=== PATIENT | female | born 1995 | race Caucasian/White ===

== ENCOUNTER → 2024-01-08 16:15 | Outpatient (REF) | payer BC, SELFPAY ==
[2024-01-08 17:23] LABS: Beta HCG Quantitative < 2.39 mIU/ml
== END ==
LOC: CLAB 16:15
PROVIDERS: ATTENDING PHYSICIAN Physician Assistant
DX: N91.2 Amenorrhea, unspecified (principal)
CPT/HCPCS: 84702

== ENCOUNTER → 2024-02-17 12:53 | Outpatient (REF) | payer BC, SELFPAY ==
[2024-02-17 14:03] LABS: % Basophils 0.6 % (0-2); % Eosinophils 2.9 % (0-6); % Immature Granulocytes 0.3 % (0-0.5); % Lymphocytes 23.4 % (20.5-51.1); % Monocytes 6.2 % (1.7-9.3); % Neutrophils 66.6 % (42.2-75.2); Absolute Eosinophils 0.2 10^3/uL (0-0.7); Absolute Lymphocytes 1.4 10^3/uL (1.2-3.4); Absolute Monocytes 0.4 10^3/uL (0.1-0.6); Absolute Neutrophils 4.1 10^3/uL (1.4-6.5); Hematocrit 42.8 % (37.0-47.0); Mean Corp Hgb Conc. 32.7 g/dL (33.0-37.0); Mean Corpuscular Hgb 30.3 pg (27.0-31.0); Mean Corpuscular Volume 92.6 fL (81.0-99.0); Mean Platelet Volume 10.5 fL (7.4-10.4); Nucleated Red Blood Cells % 0 %; Platelet Count 256 10^3/uL (130-400); Red Blood Cell Count 4.62 10^6/uL (4.20-5.40); Red Cell Dist. Width 13.1 % (11.5-14.5); White Blood Cell Count 6.2 10^3/uL (4.8-10.8)
[2024-02-17 14:24] LABS: ALT (SGPT) 33 U/L (0-35); AST (SGOT) 25 U/L (14-36); Albumin 3.9 g/dl (3.5-5.0); Alkaline Phosphatase 71 U/L (38-126); Blood Urea Nitrogen 11 mg/dl (7-17); Calcium 9.2 mg/dl (8.4-10.2); Carbon Dioxide 25 mmol/L (22-30); Chloride 107 mmol/L (98-107); Glucose 103 mg/dl (70-99); HDL Cholesterol 35 mg/dl; LDL Cholesterol, Calculated 111 mg/dl; Potassium 4.7 mmol/L (3.5-5.1); Sodium 139 mmol/L (135-145); Total Bilirubin 0.4 mg/dl (0.2-1.3); Total Cholesterol 172 mg/dl (50-199); Total Protein 6.6 g/dl (6.3-8.2); Triglyceride 130 mg/dl (10-149); Very Low Density Lipoprotein 26 mg/dl (0-30); eGFR > 60.00
[2024-02-18 08:53] LABS: Glycohemoglobin (HgbA1c) 5.7 % (4.0-5.6)
== END ==
LOC: CLAB 12:53
PROVIDERS: ATTENDING PHYSICIAN Physician Assistant
DX: I10 Essential (primary) hypertension (principal); K21.9 Gastro-esophageal reflux disease without esophagitis; F41.9 Anxiety disorder, unspecified; B36.0 Pityriasis versicolor; F43.10 Post-traumatic stress disorder, unspecified; R73.09 Other abnormal glucose; E78.00 Pure hypercholesterolemia, unspecified
CPT/HCPCS: 80053; 80061; 83036; 85025

== ENCOUNTER → 2024-03-17 06:36 | Outpatient (REF) | payer BC, SELFPAY | LOC: PAVMRI 06:36 | PROVIDERS: ATTENDING PHYSICIAN Physician Assistant | DX: M25.571 Pain in right ankle and joints of right foot (principal); S93.491A Sprain of other ligament of right ankle, initial encounter | CPT/HCPCS: 73721 ==

== ENCOUNTER → 2024-05-28 15:01 | Outpatient (REF) | payer BC, SELFPAY | LOC: CPAP 15:01 | PROVIDERS: ATTENDING PHYSICIAN Nurse Practitioner Adult Health | DX: Z01.419 Encounter for gynecological examination (general) (routine) without abnormal findings (principal) | CPT/HCPCS: 87624; G0123 ==

== ENCOUNTER → 2024-06-25 14:53 | Outpatient (REF) | payer BC, SELFPAY | LOC: CLAB 14:53 | PROVIDERS: ATTENDING PHYSICIAN Obstetrics & Gynecology Gynecology | DX: N87.9 Dysplasia of cervix uteri, unspecified (principal) | CPT/HCPCS: 88305 ==

== ENCOUNTER 2024-08-17 17:27 | Outpatient (RCR) | payer BC, SELFPAY | END 2024-08-17 23:59 | disposition home or self-care (01) | LOC: RPT 17:27 | PROVIDERS: ATTENDING PHYSICIAN Student in an Organized Health Care Education/Training Program; FAMILY PHYSICIAN Family Medicine | DX: S93.491D Sprain of other ligament of right ankle, subsequent encounter (principal); Z73.6 Limitation of activities due to disability; M62.81 Muscle weakness (generalized); R26.2 Difficulty in walking, not elsewhere classified | CPT/HCPCS: 97110; 97140; 97161 ==

== ENCOUNTER 2024-09-21 18:03 | Outpatient (RCR) | payer BC, SELFPAY | END 2024-09-21 23:59 | disposition home or self-care (01) | LOC: RPT 18:03 | PROVIDERS: ATTENDING PHYSICIAN Student in an Organized Health Care Education/Training Program; FAMILY PHYSICIAN Family Medicine | DX: S93.491D Sprain of other ligament of right ankle, subsequent encounter (principal); S93.491S Sprain of other ligament of right ankle, sequela (principal); Z73.6 Limitation of activities due to disability; M62.81 Muscle weakness (generalized); R26.2 Difficulty in walking, not elsewhere classified | CPT/HCPCS: 97110; 97112; 97140 ==

== ENCOUNTER → 2024-09-23 10:32 | Outpatient (REF) | payer BC, SELFPAY ==
[2024-09-23 11:09] LABS: % Basophils 0.5 % (0-2); % Eosinophils 4.2 % (0-6); % Immature Granulocytes 0.2 % (0-0.5); % Monocytes 6.8 % (1.7-9.3); % Neutrophils 63.3 % (42.2-75.2); Absolute Eosinophils 0.2 10^3/uL (0-0.7); Absolute Lymphocytes 1.4 10^3/uL (1.2-3.4); Absolute Monocytes 0.4 10^3/uL (0.1-0.6); Absolute Neutrophils 3.5 10^3/uL (1.4-6.5); Hematocrit 43.5 % (37.0-47.0); Mean Corp Hgb Conc. 32.2 g/dL (33.0-37.0); Mean Corpuscular Hgb 29.9 pg (27.0-31.0); Mean Corpuscular Volume 92.9 fL (81.0-99.0); Mean Platelet Volume 10.1 fL (7.4-10.4); Nucleated Red Blood Cells % 0 %; Platelet Count 231 10^3/uL (130-400); Red Blood Cell Count 4.68 10^6/uL (4.20-5.40); Red Cell Dist. Width 12.9 % (11.5-14.5); White Blood Cell Count 5.5 10^3/uL (4.8-10.8)
[2024-09-23 11:52] LABS: Glycohemoglobin (HgbA1c) 5.4 % (4.0-5.6)
[2024-09-23 12:23] LABS: Vitamin D, 25-OH*** 27.3 ng/mL (30-80)
[2024-09-23 13:03] LABS: Folate 6.1 ng/ml (2.76-20); Vitamin B12 376 pg/ml (239-931)
[2024-09-23 15:25] LABS: ALT (SGPT) 38 U/L (0-35); AST (SGOT) 33 U/L (14-36); Albumin 4.3 g/dl (3.5-5.0); Alkaline Phosphatase 61 U/L (38-126); Blood Urea Nitrogen 12 mg/dl (7-17); Calcium 9.1 mg/dl (8.4-10.2); Carbon Dioxide 26 mmol/L (22-30); Chloride 102 mmol/L (98-107); Glucose 99 mg/dl (70-99); HDL Cholesterol 40 mg/dl; LDL Cholesterol, Calculated 108 mg/dl; Potassium 4.9 mmol/L (3.5-5.1); Sodium 139 mmol/L (135-145); Total Bilirubin 0.3 mg/dl (0.2-1.3); Total Cholesterol 171 mg/dl (50-199); Total Protein 6.9 g/dl (6.3-8.2); Triglyceride 115 mg/dl (10-149); Very Low Density Lipoprotein 23 mg/dl (0-30); eGFR > 60.00
== END ==
LOC: REG 10:32
PROVIDERS: ATTENDING PHYSICIAN Physician Assistant Medical
DX: Z00.00 Encounter for general adult medical examination without abnormal findings (principal); I10 Essential (primary) hypertension; K21.9 Gastro-esophageal reflux disease without esophagitis; F41.9 Anxiety disorder, unspecified
CPT/HCPCS: 36415; 80053; 80061; 82306; 82607; 82746; 83036; 84443; 85025

== ENCOUNTER → 2024-11-11 16:33 | Outpatient (REF) | payer BC, SELFPAY | LOC: CLAB 16:33 | PROVIDERS: ATTENDING PHYSICIAN Physician Assistant Medical | DX: Z78.9 Other specified health status (principal) | CPT/HCPCS: 36415; 86765 ==

== ENCOUNTER → 2024-11-23 11:23 | Outpatient (REF) | payer BC, SELFPAY | LOC: CPAP 11:23 | PROVIDERS: ATTENDING PHYSICIAN Obstetrics & Gynecology | DX: Z11.3 Encounter for screening for infections with a predominantly sexual mode of transmission (principal) | CPT/HCPCS: 81513; 87481; 87491; 87591; 87661 ==

== ENCOUNTER → 2024-11-29 09:54 | Outpatient (REF) | payer BC, SELFPAY | LOC: RAD 09:54 | PROVIDERS: ATTENDING PHYSICIAN Obstetrics & Gynecology | DX: O26.859 Spotting complicating pregnancy, unspecified trimester (principal); Z32.01 Encounter for pregnancy test, result positive | CPT/HCPCS: 36415; 76830; 76856; 84144; 84702 ==

== ENCOUNTER 2024-12-01 18:33 | Emergency (ER) | payer BC, SELFPAY ==
[2024-12-01 18:34] VITALS: BP 167/97
[2024-12-01 20:30] VITALS: BP 177/114
[2024-12-01 21:15] VITALS: BMI 58.6
[2024-12-01 21:33] LABS: % Basophils 0.6 % (0-2); % Eosinophils 2.1 % (0-6); % Immature Granulocytes 0.3 % (0-0.5); % Lymphocytes 23.8 % (20.5-51.1); % Monocytes 5.9 % (1.7-9.3); % Neutrophils 67.3 % (42.2-75.2); Absolute Basophils 0.1 10^3/uL (0-0.2); Absolute Eosinophils 0.2 10^3/uL (0-0.7); Absolute Lymphocytes 2.1 10^3/uL (1.2-3.4); Absolute Monocytes 0.5 10^3/uL (0.1-0.6); Absolute Neutrophils 5.9 10^3/uL (1.4-6.5); Hematocrit 38.5 % (37.0-47.0); Hemoglobin 13.4 g/dL (12.0-16.0); Mean Corp Hgb Conc. 34.8 g/dL (33.0-37.0); Mean Corpuscular Hgb 30.7 pg (27.0-31.0); Mean Corpuscular Volume 88.1 fL (81.0-99.0); Nucleated Red Blood Cells % 0 %; Platelet Count 233 10^3/uL (130-400); Red Blood Cell Count 4.37 10^6/uL (4.20-5.40); White Blood Cell Count 8.8 10^3/uL (4.8-10.8)
[2024-12-01 21:46] LABS: ALT (SGPT) 30 U/L (0-35); AST (SGOT) 23 U/L (14-36); Albumin 4.5 g/dl (3.5-5.0); Alkaline Phosphatase 55 U/L (38-126); Blood Urea Nitrogen 14 mg/dl (7-17); Calcium 9.8 mg/dl (8.4-10.2); Carbon Dioxide 27 mmol/L (22-30); Chloride 104 mmol/L (98-107); Estimated Creatinine Clearance > 125 ml/min; Glucose 116 mg/dl (70-99); Potassium 4.2 mmol/L (3.5-5.1); Sodium 140 mmol/L (135-145); Total Bilirubin 0.4 mg/dl (0.2-1.3); Total Protein 6.9 g/dl (6.3-8.2); eGFR > 60.00
--- NOTE | 2024-12-02 00:15 | ED.GENMED ---
History of Present Illness
General
Chief Complaint: Problems
Source: patient and family
Time Seen by Provider: 12/01/24 20:44
History of Present Illness
History of Present Illness:
This is a 29-year-old female who presents after she was told by her OB to come in for a 'IM injection '. The patient initially states that she suspected it was Cytotec but on further questioning realized it was methotrexate. Patient states that on
Friday she had some bleeding. She had an ultrasound that showed nothing in the uterus on Friday and her hCG was above 7000. There was concerns her hCG was repeated and it was still in the 6000's. The patient denies abdominal pain. No
lightheadedness. No passing out episode. Her bleeding has mostly subsided but she still has a little bit of brown discharge. Mom states that they were concerned that she could have an ectopic
Past History
Past History
ED Past Medical History: GERD, HTN and Other (Obesity)
ED Past Surgical History: Tonsilectomy
Social History
Tobacco: Non-smoker
Alcohol: None
Drug: None
Personal: Single
Living: with family
Phy Exam
Physical Exam
Physical Exam:
CONSTITUTIONAL Vital signs reviewed, Patient alert and oriented to person, place and time. Well-appearing
HEAD atraumatic, normocephalic.
EYES eyelids normal to inspection, Extraocular muscles intact, Conjunctiva normal, Sclera normal.
NECK normal range of motion, Trachea midline, no jugular venous distention.
RESP no respiratory distress
BACK No obvious deformities
UPPER EXTREMITY Gross Range of motion normal, gross motor strength normal
LOWER EXTREMITY Gross range of motion normal, Gross motor strength normal
NEURO Speech normal, No focal motor deficits include, [place] coma scale 15, Memory normal, Cranial Nerves intact to screening exam.
SKIN Skin warm, dry, and normal in color.
PSYCHIATRIC Patient oriented to person place and time, Normal affect.
Course
Orders/Labs/Results
Orders:
Orders
12/01/24 21:23
Blood Group&Type Urgent
Beta HCG Quantitative Urgent
Comment: ADD ON
Complete Blood Count/With Diff Urgent
Comprehensive Metabolic Panel Urgent
12/01/24 22:00
Add On- LAB Urgent
Tests Added?: hcg beta quant
12/01/24 23:36
Methotrexate Sodium/Pf [Methotrexate] 50 mg Syringe [Syringe Non-Pump] 0 ml IM ONCE@2336,2337
12/02/24 00:14
Miscellaneous Order As Directed
Miscellaneous order: Methotrexate is okay to be given intramuscularly by a non-chemo certified nurse
Abnormal Lab Results
12/01/24
21:23
Glucose 116 H mg/dl
(70-99)
12/01/24 21:23
12/01/24 21:23
Vital Signs
Initial and Last Documented VS:
Initial Vital Signs
Temp Pulse Resp BP Pulse Ox
98.3 F 96 16 167/97 98
12/01/24 18:34 12/01/24 18:34 12/01/24 18:34 12/01/24 18:34 12/01/24 18:34
Last Documented Vital Signs
Temp Pulse Resp BP Pulse Ox
98.1 F 101 20 178/100 96
12/02/24 00:27 12/02/24 00:27 12/02/24 00:27 12/02/24 00:27 12/02/24 00:27
Information
Weeks gestation: N/A
Location: N/A
MDM/Problems Addressed
Differential Diagnosis Includes:
Miscarriage, ectopic
MDM/Problems Addressed:
Ectopic
*Pulse Oximetry
Patient hypoxic: no
*Critical Care Note
Total Time (30-74mins, 75-104mins- exclusive of procedures): Not Applicable
Data Reviewed
Review of Other/Old Records Reveals: Labs (hCG levels reviewed) and Radiology Studies (Ultrasound from 324 reviewed revealing no gestational sac and no IUP)
Source: patient and family
Further Testing Considered But Not Given:
Consider repeat ultrasound but no symptoms
Patient Management
Discussion with other providers: Director [employer] (Case discussed with Dr. Pimentel)
Escalation/DeEscalation of care consider admission/obs:
29-year-old female who presents with mom. Sent by OB as beta-hCG has not declined enough. Methotrexate recommended by Dr. Pimentel. Given in the emergency department. Dr. Pimentel recommends 4-day hCG measurement. Prescription given
ED Attending Note
-
Portions of this chart may have been created with voice recognition software.� Occasional wrong word or��sound alike� substitutions may have occurred due to the inherent limitations of voice recognition software.
Discharge Plan
Departure
Patient Disposition: Home (Routine Discharge)
Date of Disposition: 12/02/24
Time of Disposition: 00:21
Patient with high blood pressure during this ER visit?: Yes
Discharge Problem:
possible ectopic
Instructions: Ectopic
Prescriptions:
No Action
cetirizine [Zyrtec] 10 mg Tablet
10 mg PO DAILY
fexofenadine 180 mg Tablet
180 mg PO DAILY
lorazepam 0.5 mg tablet
0.5 mg PO DAILYPRN PRN (Reason: anxiety/panic attack)
doxycycline monohydrate 100 mg Capsule
100 mg PO BID
lisinopril 10 mg tablet
10 mg PO DAILY
norethindrone (contraceptive) 0.35 mg tablet
0.35 mg PO DAILY
escitalopram oxalate 5 mg tablet
5 mg PO DAILY
omeprazole 20 mg Tablet,Delayed Release (Dr/Ec)
20 mg PO DAILY
Probiotic 10 billion cell Capsule
10,000 mmu cells PO DAILY
cephalexin 500 mg capsule
1,000 mg PO QID 7 Days Qty: 56 0RF
Referrals:
Ramila Villa PA-C [Family Provider] -
Stand Alone Forms: Return to Work
Activity Restrictions/Additional Instructions:
Possible ectopic
Please have your hCG drawn again in 4 days (Friday). Return immediately for excessive bleeding, excessive cramping, lightheadedness, weakness, swelling of any kind, difficulty breathing, rash or any other concerns. Please be sure to follow-up with
your OB over the next 2 to 3 days for follow-up and reassessment
Interventions
Interventions:
*Risk Screen - Suicide Last Done: 12/01/24 20:34
*General Assessment Last Done: 12/01/24 20:33
*ED- Fall Risk Assessment Last Done: 12/01/24 20:33
*ED COVID-19 Vaccine History Last Done: 12/01/24 20:32
*Nursing Disposition Last Done: 12/02/24 00:34
ED-Female Genitourinary Assessment Last Done: 12/01/24 20:34
Discharge Date and Time
Discharge Date/Time: 12/02/24 00:35
Print Language: DIVEHI
[2024-12-02] MEDS: METHOTREXATE 2 MG IM ×2 (00:16→00:19)
[2024-12-02 00:27] VITALS: BP 178/100
== END 2024-12-02 00:35 | disposition home or self-care (01) ==
LOC: EMR 18:33
PROVIDERS: EMERGENCY PHYSICIAN Emergency Medicine; FAMILY PHYSICIAN Physician Assistant Medical
DX: O03.9 Complete or unspecified spontaneous abortion without complication (principal); O02.81 Inappropriate change in quantitative human chorionic gonadotropin (hCG) in early pregnancy; I10 Essential (primary) hypertension
CPT/HCPCS: 99284; 96372; 80053; 84144; 84702; 85025; 86900; 86901; J9260

== ENCOUNTER 2024-12-09 14:02 | Emergency (ER) | payer BC, SELFPAY ==
[2024-12-09 14:04] VITALS: BP 173/104
[2024-12-09 14:22] LABS: % Basophils 0.4 % (0-2); % Eosinophils 2.5 % (0-6); % Immature Granulocytes 0.4 % (0-0.5); % Lymphocytes 19.3 % (20.5-51.1); % Monocytes 4.9 % (1.7-9.3); % Neutrophils 72.5 % (42.2-75.2); Absolute Eosinophils 0.2 10^3/uL (0-0.7); Absolute Lymphocytes 1.6 10^3/uL (1.2-3.4); Absolute Monocytes 0.4 10^3/uL (0.1-0.6); Absolute Neutrophils 6.1 10^3/uL (1.4-6.5); Hemoglobin 13.4 g/dL (12.0-16.0); Mean Corp Hgb Conc. 34.4 g/dL (33.0-37.0); Mean Corpuscular Hgb 30.7 pg (27.0-31.0); Mean Corpuscular Volume 89.2 fL (81.0-99.0); Mean Platelet Volume 9.6 fL (7.4-10.4); Nucleated Red Blood Cells % 0 %; Platelet Count 261 10^3/uL (130-400); Red Blood Cell Count 4.37 10^6/uL (4.20-5.40); Red Cell Dist. Width 12.9 % (11.5-14.5); White Blood Cell Count 8.4 10^3/uL (4.8-10.8)
[2024-12-09 14:37] VITALS: BMI 57.0
--- NOTE | 2024-12-09 14:37 | ED.GENMED ---
History of Present Illness
General
Chief Complaint: Abdominal Pain
Source: patient
Time Seen by Provider: 12/09/24 14:21
History of Present Illness
History of Present Illness:
Contact 29-year-old female with past medical history of hypertension, GERD, anxiety, recently diagnosed with suspected ectopic and treated with methotrexate on December 02 presenting to the emergency for reevaluation of pain to the right
lower quadrant that became acutely worse earlier today, notes that her hCG has down trended from a little over 7000 to 2100 today. There are no other associated symptoms with the pain presently although patient does note she had a little bit of
nausea and vomiting this morning which is now resolved. Patient denies any further vaginal bleeding or discharge. Denies any urinary symptoms or bowel changes. Patient last had an ultrasound here 6 days ago which was inconclusive for any intra or
extrauterine . She has followed up with the MECHANICAL DRAFTER for her hCGs as directed but no further imaging has been done since.
Past History
Past History
ED Past Medical History: GERD, HTN, Psychiatric and Other (Obesity)
ED Past Surgical History: Tonsilectomy
Social History
Tobacco: Non-smoker
Alcohol: None
Drug: None
Personal: Single
Living: with family
Review of Systems
Review of Systems
All Other Systems: ROS reviewed and negative except as documented in HPI and ROS
Phy Exam
Physical Exam
Physical Exam:
GENERAL: Alert , appears mildly uncomfortable, overweight
EYE: clear conjunctiva b/l
HEAD: NCAT
ENT: o/p clr, mmm.
CARDIAC: Regular rate and rhythm .
LUNGS: Clear breath sounds bilaterally, no acute respiratory distress, no wheezes/rales/rhonchi
ABDOMEN: Soft, right mid to lower abdominal tenderness with grimacing on palpation, no r/g, no cvat
NEUROLOGICAL: Alert and oriented
SKIN: Warm and dry, skin intact.
MUSCULOSKELETAL: well perfused.
PSYCH: Normal and appropriate interaction.
Scores
Heart Failure Risk
Heart Failure Risk Score: Not Applicable
Heart Score for Chest Pain Patients
STEMI patient?: Not applicable
Withdrawal Assessment of Alcohol
Withdrawal Assessment Completed?: Not applicable
Course
Orders/Labs/Results
Orders:
Orders
12/09/24 14:11
Complete Blood Count/With Diff Urgent
Comprehensive Metabolic Panel Urgent
Lipase Urgent
12/09/24 14:27
Add On- LAB Urgent
Tests Added?: hcg quantitative
12/09/24 14:36
CT Abd/pelvis W Iv Cont Urgent
Comment:
Reason For Exam: RLQ abd pain, recent suspected ectopic preg
Ketorolac [Toradol] 30 mg IV NOW STA
Abnormal Lab Results
12/09/24
14:11
Lymphocytes % 19.3 L %
(20.5-51.1)
Glucose 105 H mg/dl
(70-99)
12/09/24 14:11
12/09/24 14:11
Vital Signs
Initial and Last Documented VS:
Initial Vital Signs
Temp Pulse Resp BP Pulse Ox
98.8 F 106 18 173/104 98
12/09/24 14:04 12/09/24 14:04 12/09/24 14:04 12/09/24 14:04 12/09/24 14:04
Last Documented Vital Signs
Temp Pulse Resp BP Pulse Ox
98.8 F 106 18 173/104 99
12/09/24 14:04 12/09/24 14:04 12/09/24 14:04 12/09/24 14:04 12/09/24 14:49
MDM/Problems Addressed
Differential Diagnosis Includes:
Ectopic/ruptured ectopic , appendicitis, renal/ureteral colic, cholecystitis, medication side effect, muscle strain
MDM/Problems Addressed:
29-year-old female, diagnosed with recent suspected ectopic and receiving methotrexate 6 days ago presenting back to the emergency department due to pain within the right side of her lower abdomen that started today. Patient has had 2
hCGs drawn since the with the first being somewhere in the 3000's and today being right around 2100. Patient is tender within the right lower part of her abdomen on exam. Given her recent diagnosis of possible ectopic there is some
concern for ruptured ectopic. Patient is hypertensive and mildly tachycardic on arrival however her hemoglobin is stable at 13. Given there was no intrauterine or extrauterine seen on ultrasound will obtain CT scan to further evaluate
cause of pain. Will treat patient's pain with Toradol. Patient advised to remain NPO. Will discuss with MECHANICAL DRAFTER pending workup results.
*Radiology
Radiology exam reviewed: radiology read reviewed
*Pulse Oximetry
Patient hypoxic: no
*Critical Care Note
Total Time (30-74mins, 75-104mins- exclusive of procedures): Not Applicable
Data Reviewed
Review of Other/Old Records Reveals: Labs, Records and Radiology Studies
Patient Management
Discussion with other providers: Prenatal Nurse
Escalation/DeEscalation of care consider admission/obs:
Patient CT findings noted for suspected ectopic . There does not appear to be any retroperitoneal blood, patient has remained hemodynamically stable although she does note she still has discomfort within the right lower quadrant. I
discussed the case with on-call ADULT NEUROLOGIST, Dr. Ulloa, who came to the emergency department to evaluate the patient. States okay for discharge home and continued outpatient management. Patient will follow-up as directed for continued hCG trending.
ED Attending Note
-
Portions of this chart may have been created with voice recognition software.� Occasional wrong word or��sound alike� substitutions may have occurred due to the inherent limitations of voice recognition software.
Discharge Plan
Departure
Patient Disposition: Home (Routine Discharge)
Date of Disposition: 12/09/24
Time of Disposition: 16:59
Patient with high blood pressure during this ER visit?: Yes
Discharge Problem:
Ectopic
Instructions: Ectopic - Discharge instructions
Prescriptions:
No Action
cetirizine [Zyrtec] 10 mg Tablet
10 mg PO DAILY
fexofenadine 180 mg Tablet
180 mg PO DAILY
lorazepam 0.5 mg tablet
0.5 mg PO DAILYPRN PRN (Reason: anxiety/panic attack)
doxycycline monohydrate 100 mg Capsule
100 mg PO BID
lisinopril 10 mg tablet
10 mg PO DAILY
norethindrone (contraceptive) 0.35 mg tablet
0.35 mg PO DAILY
escitalopram oxalate 5 mg tablet
5 mg PO DAILY
omeprazole 20 mg Tablet,Delayed Release (Dr/Ec)
20 mg PO DAILY
Probiotic 10 billion cell Capsule
10,000 mmu cells PO DAILY
cephalexin 500 mg capsule
1,000 mg PO QID 7 Days Qty: 56 0RF
Referrals:
Ramlia Villa PA-C [Family Provider] -
Interventions
Interventions:
*Risk Screen - Suicide Last Done: 12/09/24 14:04
*General Assessment Last Done: 12/09/24 14:04
*Neglect/Abuse Screening Last Done: 12/09/24 14:04
*ED- Fall Risk Assessment Last Done: 12/09/24 14:35
*ED COVID-19 Vaccine History Last Done: 12/09/24 14:04
*Nursing Disposition Last Done: 12/09/24 17:16
CY-Qmujmg-Ayqhgrdlry Assessment Last Done: 12/09/24 14:35
Discharge Date and Time
Discharge Date/Time: 12/09/24 17:17
Print Language: CITIZEN OF [place]
[2024-12-09 14:39] LABS: ALT (SGPT) 30 U/L (0-35); AST (SGOT) 22 U/L (14-36); Albumin 4.1 g/dl (3.5-5.0); Alkaline Phosphatase 60 U/L (38-126); Blood Urea Nitrogen 10 mg/dl (7-17); Calcium 9.5 mg/dl (8.4-10.2); Carbon Dioxide 28 mmol/L (22-30); Chloride 104 mmol/L (98-107); Estimated Creatinine Clearance > 125 ml/min; Glucose 105 mg/dl (70-99); Lipase 103 U/L (23-300); Potassium 4.3 mmol/L (3.5-5.1); Sodium 140 mmol/L (135-145); Total Bilirubin 0.4 mg/dl (0.2-1.3); Total Protein 6.9 g/dl (6.3-8.2); eGFR > 60.00
[2024-12-09] MEDS: TORADOL 30 MG IV (14:45)
--- NOTE | 2024-12-09 17:02 | CON.MD ---
Consultation - Medical
-
Consult: ectopic
HPI: Patient is a 29yo who presents with complaints of right lower quadrant pain. Patient has known ectopic and received Methotrexate on December 01. She said she was having right sided pain at that time and it has been stable since
then. 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 She got Toradol in the ED and says she has had improvement of the pain. She says the pain is worse when
urinating and passing gas. She said it feels like period cramps and she thought it was gas pain. Hcg on day 4 was 3592 and today (day 7) is 2017. She denies dizziness, lightheadedness, chest pain, shortness of breath, or heavy vaginal bleeding.
ROS negative unless otherwise noted in the HPI
PMHx: cHTN, BMI 60
Meds: lisinopril (stopped w/ ), sebastián, buproprion, escitalopram, probiotic, zyrtec
Surghx: tonsillectomy
All: PCN, sulfa, tegratol, erythromycin, codeine
Socialhx: denies current tobacco, etoh or illicit drug use
Famhx: dad w/ DM, HTN and thyroid disease, mom w/ thyroid disease and HTN
OBHx:
Gynhx: regular monthly periods prior to getting , Pap in 06/2024 was abnormal and had a normal colpo, denies history of STDs
O:
BP 173/104
General: well appearing, no acute distress
Cardio: regular
Pulm: no increased work of breathing
Abd: mild tenderness to palpation of the RLQ with no rebound, rigidity or guarding
Ext: nontender
CTAP:
EXAMINATION: CT of the abdomen and pelvis with oral and IV contrast.
INDICATION: Right lower quadrant pain. Recent suspected ectopic .
TECHNIQUE: Contiguous helical acquisition from the bases of the lungs through the pubic symphysis with oral and IV contrast. Automated dose reduction technique was utilized. Delayed imaging was performed. Axial reconstructions and sagittal and
coronal reformats provided.
COMPARISON: Pelvic ultrasound 11/29/2024, CT the abdomen and pelvis 06/02/2023
FINDINGS:
Lung Bases: The lungs bases are clear.
Bone: Osseous structures of the abdomen and pelvis show mild degenerative disease.
Abdomen and pelvis: The liver, spleen, gallbladder and pancreas are unremarkable aside from mild hepatic fatty infiltration. The adrenal glands and kidneys are unremarkable. The abdominal aorta is normal caliber. No significant lymphadenopathy is
noted. Bowel loops are normal caliber. The terminal ileum and appendix are within normal limits. There is moderate fecal material throughout the colon. There is mild diverticulosis.
No free fluid is noted. The urinary bladder is unremarkable.
There is a hypodense irregular mass with mild rim enhancement in the right anterior pelvis seen best on image 76 series 201. It measures 2.0 x 2.6 x 3.4 cm. This is adjacent to/within the right ovary. If the patient is , ectopic
cannot be excluded. No pole nor yolk sac is identified. No intrauterine cystic mass no abnormality is noted. The left ovary is unremarkable.
IMPRESSION: Right pelvic mass as described above. An ectopic could have this appearance. A corpus luteum cyst is another possibility. Clinical and laboratory correlation recommended
Moderate fecal material in the colon.
Hepatic fatty infiltration.
A/P: Patient is a 29yo with known ectopic s/p methotrexate who presents with worsening abdominal pain
- CTAP shows right ectopic with no free fluid
- Hcg from day 4 to day 7 decreased greater than 15% (3591->2016)
- Patient had improvement of her pain of Toradol. She does have mild RLQ pain on exam but has no rebound/rigidity/guarding
- Discussed with patient at this time, I do not think she has a ruptured ectopic . Her vital signs and hemoglobin are stable, there is no free fluid on CT scan, and her hcgs are appropriately decreasing. She is resting comfortably and only
has mild tenderness on exam. Her pain is likely related to methotrexate administration and involution of the . I did discuss option for diagnostic lap with right salpingectomy to completely rule out rupture of ectopic but patient
would like to avoid surgery if possible. She was given very strict ED return precautions including worsening of her abdominal pain, heavy vaginal bleeding, dizziness, lightheadedness, chest pain, or shortness of breath. She is aware she needs to
trend hcgs weekly until they are negative. She already has an order for her hcg for next week. She is to avoid strenuous activity, intercourse, and folic acid until ectopic has resolved. She knows she should not try to conceive for 3
months after administration of methotrexate
- Patient has questions regarding her future fertility and pregnancies. Discussed increased risk of ectopic in future but also aware she can go on to have normal pregnancies. I recommend that she lose weight prior to as
an increased BMI (her is 60) increases risks of complications in future pregnancies. She was on lisinopril prior to and I recommended she speak with her PCP about changing to labetalol or Procardia which are safe to take during .
Her BP was very elevated today which the patient attributes to anxiety. I encouraged her to follow up for BP management
40 minutes spent with patient, reviewing the chart, and documenting
== END 2024-12-09 17:17 | disposition home or self-care (01) ==
LOC: EMR 14:02
PROVIDERS: EMERGENCY PHYSICIAN Student in an Organized Health Care Education/Training Program; FAMILY PHYSICIAN Physician Assistant Medical; OTHER PHYSICIAN Student in an Organized Health Care Education/Training Program
DX: O00.101 Right tubal pregnancy without intrauterine pregnancy (principal); O16.1 Unspecified maternal hypertension, first trimester; Z88.5 Allergy status to narcotic agent; Z88.2 Allergy status to sulfonamides; K76.0 Fatty (change of) liver, not elsewhere classified; O99.340 Other mental disorders complicating pregnancy, unspecified trimester; F41.9 Anxiety disorder, unspecified; Z3A.00 Weeks of gestation of pregnancy not specified
CPT/HCPCS: 96374; 99284; 74177; 80053; 83690; 84702; 85025; Q9967

== ENCOUNTER 2024-12-10 12:06 | Day surgery (SDC) | payer BC, SELFPAY ==
[2024-12-10] VITALS (26 sets, daily range): BP systolic 82–176; BP diastolic 55–112; BMI 58.0
--- NOTE | 2024-12-10 09:10 | ED.GENMED ---
History of Present Illness
General
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
Source: patient
Exam Limitations: none
Time Seen by Provider: 12/10/24 08:54
History of Present Illness
History of Present Illness:
29-year-old female returns with increasing right lower quadrant pain. Some radiation up towards the liver area. Pain has been moderate in nature but became severe early this morning. No fever chills or other complaints. Recent CTA shows a right
ectopic with no free fluid. hCG is decreasing. There was discussions of conservative management versus diagnostic laparoscopy with right salpingectomy yesterday. Yeah
Past History
Past History
ED Past Medical History: GERD, HTN, Psychiatric and Other (Obesity)
ED Past Surgical History: Tonsilectomy
Social History
Tobacco: Non-smoker
Alcohol: None
Drug: None
Personal: Single
Living: with family
Phy Exam
Physical Exam
Physical Exam:
GENERAL: Alert and oriented. Mildly uncomfortable appearing. Mildly pale
EYE: Orbits normal.
NECK: Supple
CARDIAC: Regular rate and rhythm without any obvious murmurs.
LUNGS: Clear breath sounds,normal
ABDOMEN: Elevated BMI. Soft. Significant tenderness right lower quadrant and moderate tenderness right upper quadrant
NEUROLOGICAL: Alert and oriented , grossly non-focal
SKIN: Warm and dry, no rash or lesion, no discoloration, skin intact.
MUSCULOSKELETAL: No edema,no deformity.Good color
PSYCH: Normal and appropriate interaction.
Course
Orders/Labs/Results
Orders:
Orders
12/10/24 09:07
IV Insert/Care/Rem.- Treatment PRN
12/10/24 09:14
Ondansetron Injectable [Zofran] 4 mg .ROUTE .STK-MED ONE
12/10/24 09:15
Type+Screen Urgent
Complete Blood Count/With Diff Urgent
Comprehensive Metabolic Panel Urgent
PTT Urgent
Prothrombin Time Urgent
12/10/24 09:16
US Abdomen Limited Stat
Comment:
Reason For Exam: Evaluate free fluid for rupturing ectopic
12/10/24 09:18
EKG [Electrocardiogram (*1)] Urgent
Reason for Study: QTc Monitoring
EKG- Treatment ONCE
12/10/24 09:20
Electrocardiogram (*1) Urgent
Reason for Study: Other
Other Reason for Exam: QT monitoring
EKG- Treatment ONCE
12/10/24 09:24
0.9% Sodium Chloride 1000 ml [Nss] 1,000 ml IV BOLUS
12/10/24 09:25
Ondansetron Injectable [Zofran] 4 mg IV NOW STA
12/10/24 09:26
* Blood Bank Products Urgent
Blood Bank Products: *Packed RBC Leuko(PRBC's)
Quantity: 2
Transfuse Today: Yes
Reason: Bleeding
IV Insert/Care/Rem.- Treatment PRN
12/10/24 09:30
Tranexamic Acid 1000 mg/100 ml [Tranexamic Acid] 1,000 mg in 100 ml IV ONCE
12/10/24 09:33
Emergent Blood Release Stat
Blood Bank Products: *Packed RBC Leuko(PRBC's)
Quantity: 2
Reason: Bleeding
A Blood Permit is Required for all Blood.
FOR LAB PICKUP:
Take order sheet to Blood Bank to shredder picker blood products in validated cooler
Immediately return to patient care area.
Blood products released by
Blood Products picked up by
Sent to
Date and Time
Massive Tranfusion Protocol Stat
Reason to initiate: Bleeding/Hemorrhaging
An initial MTP pack includes:
�Four (4)) units of type specific, type compatible red blood cells.
�Four (4) units of type specific, or type compatible plasma. Type A thawed plasma may also be used if
type specific or type compatible is not readily available. Thawing plasma takes approximately 20-30
mins. If cryoprecipitate is requested with the initial MTP pack, thaw 3 FFP and 1 CRYOP, followed by the
4th FFP.
�One (1) unit of apheresis platelet (if available). If we do not have platelets available, Blood Bank
places a STAT order for two (2) units.
�Cryoprecipitate will be thawed upon request of the physician. If cryoprecipitate is requested by the
physician, alert physician there is an approximate 20-30 minute wait for thawing. If physician still
requests, thaw 1 pre-pooled cryoprecipitate. There will be no automatic thawing of cryoprecipitate by
the blood bank staff.
�Notify the ED, OR, or patient care area when MTP set is ready.
A Blood Permit is Required for all Blood.
FOR LAB PICKUP:
Take order sheet to Blood Bank to shredder picker blood products in validated cooler
Immediately return to patient care area.
Blood products released by
Blood Products picked up by
Sent to
Date and Time
IV Insert/Care/Rem.- Treatment PRN
12/10/24 09:40
HYDROmorphone [Dilaudid] 0.25 mg IV PACU-Q5MPRN PRN
HYDROmorphone [Dilaudid] 0.5 mg IV PACU-Q5MPRN PRN
Meperidine [Demerol] 12.5 mg IV PACU-Q5MPRN PRN
Ondansetron Injectable [Zofran] 4 mg IV PACU-ONCEPRN PRN
Prochlorperazine [Compazine] 5 mg IV PACU-ONCEPRN PRN
Notify MD As Directed
Notify physician if: for SDS patients with known or suspected sleep obstructive sleep apnea, monitor in the
PACU.
Notify MD for any apneic/desaturation episodes
O2 Therapy [RESP] Urgent
Titrate/Wean O2 to maintain O2 sat greater than (%): 92
Special Instructions: -Provide supplemental oxygen to achieve O2 sat of 92% or greater.
-After 15 min, may wean O2 and discontinue if patient is able to maintain O2 sat of 92%
or greater during recovery period.
If patient is a discharge home, without oxygen therapy, notify anestheiologist if
unable to maintain O2 SAT of 92% or greater on room air for MD clearance.
12/10/24 09:45
Normosol (Mult Electrolytes) [Normosol-R/Plasmalyte-A] 1,000 ml IV PER PROTOCOL
12/10/24 10:01
Blood Bank Products [* Blood Bank Products] Stat
Dr's Orders: 2 units PRBC ON HOLD FOR OR
Blood Bank Products: *Packed RBC Leuko(PRBC's)
Quantity: 2
Transfuse Today: Yes
Is product needed for scheduled surgery?: Yes
Expected Surgery Date: TODAY
Reason: Bleeding
Patient will require pre-treatment for transfusion:: No
Comment: ON HOLD FOR OR
Abnormal Lab Results
12/10/24
09:15
RBC 3.93 L 10^6/uL
(4.20-5.40)
Hgb 11.9 L g/dL
(12.0-16.0)
Hct 34.9 L %
(37.0-47.0)
Lymphocytes % 19.6 L %
(20.5-51.1)
Glucose 138 H mg/dl
(70-99)
Total Protein 6.0 L g/dl
(6.3-8.2)
Crossmatch IS Only See Detail
12/10/24 09:15
12/10/24 09:15
Vital Signs
Initial and Last Documented VS:
Initial Vital Signs
Temp Pulse Resp BP Pulse Ox
97.8 F 144 20 176/101 100
12/10/24 08:52 12/10/24 08:52 12/10/24 08:52 12/10/24 08:52 12/10/24 08:52
Last Documented Vital Signs
Temp Pulse Resp BP Pulse Ox
97.8 F 119 25 99/77 98
12/10/24 08:52 12/10/24 09:30 12/10/24 09:30 12/10/24 09:24 12/10/24 09:06
*Critical Care Note
Total Time (30-74mins, 75-104mins- exclusive of procedures): 50
Update Note
Update Note:
0910... [facility] contacted immediately upon exiting the room. Concern for rupturing ectopic. IV ordered. Labs type and screen pain management. No need for further imaging at this time
0917... Acutely diaphoretic. Now nauseous. I was able to contact [facility]. Aware of the high suspicion for rupturing ectopic. We will get a second line IV fluids stat ultrasound
0935... Blood pressure 85. Unmatched blood ordered. OR recontacted.
0940... Blood pressure improved. Dr. Teixeira here. Unmatched blood pending.
1000... Patient to the OR. Blood pressure reasonable.
ED Attending Note
-
Portions of this chart may have been created with voice recognition software.� Occasional wrong word or��sound alike� substitutions may have occurred due to the inherent limitations of voice recognition software.
Discharge Plan
Departure
Patient Disposition: Admit
Date of Disposition: 12/10/24
Time of Disposition: 09:36
Admit to: OR
Presentation/result/management discussed w/ accepting MD/DO: [facility]
Discharge Problem:
Ruptured ectopic /shock
Prescriptions:
No Action
cetirizine [Zyrtec] 10 mg Tablet
10 mg PO DAILY
fexofenadine 180 mg Tablet
180 mg PO DAILY
lisinopril 10 mg tablet
10 mg PO DAILY
omeprazole 20 mg Tablet,Delayed Release (Dr/Ec)
20 mg PO DAILY
Probiotic 10 billion cell Capsule
10,000 mmu cells PO DAILY
bupropion HCl 150 mg tablet sustained-release 12 hr
150 mg PO DAILY
escitalopram oxalate 20 mg tablet
20 mg PO DAILY
lorazepam 1 mg Tablet
1 mg PO DAILY PRN (Reason: anxiety)
cholecalciferol (vitamin D3) [Vitamin D3] 25 mcg (1,000 unit) Capsule
25 mcg PO DAILY
Referrals:
UNKNOWN - PT NOT,INTERVIEWE [Family Provider] -
Discharge Date and Time
Print Language: PASHTO
[2024-12-10 09:23] LABS: % Basophils 0.4 % (0-2); % Eosinophils 2.5 % (0-6); % Immature Granulocytes 0.4 % (0-0.5); % Lymphocytes 19.6 % (20.5-51.1); % Monocytes 4.6 % (1.7-9.3); % Neutrophils 72.5 % (42.2-75.2); Absolute Eosinophils 0.2 10^3/uL (0-0.7); Absolute Lymphocytes 1.4 10^3/uL (1.2-3.4); Absolute Monocytes 0.3 10^3/uL (0.1-0.6); Hematocrit 34.9 % (37.0-47.0); Hemoglobin 11.9 g/dL (12.0-16.0); Mean Corp Hgb Conc. 34.1 g/dL (33.0-37.0); Mean Corpuscular Hgb 30.3 pg (27.0-31.0); Mean Corpuscular Volume 88.8 fL (81.0-99.0); Mean Platelet Volume 9.7 fL (7.4-10.4); Nucleated Red Blood Cells % 0 %; Platelet Count 292 10^3/uL (130-400); Red Blood Cell Count 3.93 10^6/uL (4.20-5.40); White Blood Cell Count 6.9 10^3/uL (4.8-10.8)
[2024-12-10] MEDS: ZOFRAN 4 MG IV (09:26)
[2024-12-10] MEDS: NSS 1000 IV (09:27)
[2024-12-10 09:38] LABS: APTT 28.1 Sec (23.4-35.0); INR 1.08; PT 14.3 Sec (11.4-14.6)
[2024-12-10 09:41] LABS: ALT (SGPT) 28 U/L (0-35); AST (SGOT) 21 U/L (14-36); Albumin 3.5 g/dl (3.5-5.0); Alkaline Phosphatase 58 U/L (38-126); Blood Urea Nitrogen 13 mg/dl (7-17); Calcium 8.9 mg/dl (8.4-10.2); Carbon Dioxide 24 mmol/L (22-30); Chloride 106 mmol/L (98-107); Estimated Creatinine Clearance > 125 ml/min; Glucose 138 mg/dl (70-99); Potassium 4.2 mmol/L (3.5-5.1); Sodium 138 mmol/L (135-145); Total Bilirubin 0.4 mg/dl (0.2-1.3); eGFR > 60.00
[2024-12-10] MEDS: TRANEXAMIC ACID 100 IV (09:43)
[2024-12-10 10:28] LABS: B.E. - POC -0.4 mmol/L; Glucose - POC 141 mg/dl (70-99); HCO3 - POC 28 mmol/L (21-28); Hematocrit - POC 31 % PCV (37-47); Hemodilution- POC No; Hemoglobin Calculated - POC 10.5; Lactate - POC 2.73 mmol/L (0.36-0.75); O2 Saturation %Calculated-POC 26.9 % (94-98); PCO2 - POC 65 mmHg (35-48); PO2 - POC 22 mmHg (83-108); Potassium - POC 4.6 mmol/L (3.5-5.1); Sodium - POC 142 mmol/L (136-145); Specimen Type - POC Venous; pH - POC 7.24 (7.35-7.45)
[2024-12-10] MEDS: DILAUDID 0.25 MG IV (14:05)
[2024-12-10] MEDS: TORADOL 15 MG IV ×2 (14:54→20:13)
[2024-12-10] MEDS: DILAUDID 4 MG PO ×2 (16:31→23:31)
[2024-12-10] MEDS: NORMOSOL-R/PLASMALYTE-A 1000 IV ×2 (16:41→22:27)
--- NOTE | 2024-12-10 17:27 | PTCARENOTE ---
Pt arrived to 2S in bed. Full assessment completed. IVF infusing per order. Abdominal incisions C/D/I, glued and ESTEFANIA. Indwelling catheter clean and intact draining yellow urine. Bed locked and in the lowest position, safety maintained. Oriented to
room and call sunday fierro at bedside.
[2024-12-10 19:26] LABS: Hematocrit 31.1 % (37.0-47.0); Hemoglobin 10.6 g/dL (12.0-16.0)
[2024-12-10] MEDS: PEPCID 20 MG PO (20:13)
[2024-12-10] MEDS: COLACE 100 MG PO (20:13)
--- NOTE | 2024-12-10 21:14 | W.PN.OBG.DWH ---
Today's Communication / Plan
-
Stable Post Op check
Labs in Am
Advance diet as tolerated
Assessment/Plan
-
S/P laparoscopic right salpingectomy for ruptured ectopic-stable, continue with present management
Subjective Data
-
Patient visiting with porsha, resting comfortably. No complaints, feels 'sore', but pain that she had this morning is gone. Has been taking po liquids, not too hungry. Has no questions about today's events, is appreciative of effort made by all
involved.
Objective Data
-
Laboratory Results
12/10/24 18:46
12/10/24 09:15
Vital Signs
Temp Pulse Resp BP Pulse Ox
99.0 F 100 18 148/112 100
12/10/24 20:35 12/10/24 20:35 12/10/24 20:35 12/10/24 20:35 12/10/24 20:35
Abdomen-soft, obese, nondistended, mildly tender, good bowel sounds, no rebound or guarding, Incisions clean and dry. Bruising noted around the LLQ incision.
Extremities-no calf pain. Sequential teds in place
[2024-12-11] MEDS: ATIVAN 1 MG PO (00:01)
[2024-12-11] MEDS: TORADOL 15 MG IV ×2 (00:01→06:14)
[2024-12-11 03:32] VITALS: BP 124/70
[2024-12-11 07:05] VITALS: BP 120/73
[2024-12-11 07:57] LABS: Carbon Dioxide 27 mmol/L (22-30); Chloride 104 mmol/L (98-107); Estimated Creatinine Clearance > 125 ml/min; Potassium 4.3 mmol/L (3.5-5.1); Sodium 136 mmol/L (135-145)
[2024-12-11 08:05] LABS: Hematocrit 25.3 % (37.0-47.0); Hemoglobin 8.7 g/dL (12.0-16.0); Mean Corp Hgb Conc. 34.4 g/dL (33.0-37.0); Mean Corpuscular Hgb 30.4 pg (27.0-31.0); Mean Corpuscular Volume 88.5 fL (81.0-99.0); Mean Platelet Volume 9.7 fL (7.4-10.4); Platelet Count 203 10^3/uL (130-400); Red Blood Cell Count 2.86 10^6/uL (4.20-5.40); Red Cell Dist. Width 14.3 % (11.5-14.5); White Blood Cell Count 10.8 10^3/uL (4.8-10.8)
[2024-12-11] MEDS: NORMOSOL-R/PLASMALYTE-A 1000 IV (08:48)
[2024-12-11] MEDS: CLARITIN 10 MG PO (08:50)
[2024-12-11] MEDS: WELLBUTRIN SR (12 hour sustained release) 150 MG PO (08:50)
[2024-12-11] MEDS: COLACE 100 MG PO (08:50)
[2024-12-11] MEDS: FEOSOL 325 MG PO (08:50)
[2024-12-11] MEDS: LEXAPRO 20 MG PO (08:51)
[2024-12-11] MEDS: PEPCID 20 MG PO (08:52)
[2024-12-11] MEDS: DILAUDID 4 MG PO ×3 (08:56→19:12)
--- NOTE | 2024-12-11 10:23 | W.PN.OBG.DWH ---
Today's Communication / Plan
-
D/C IVF
regular diet
d/c home after lunch.
Assessment/Plan
-
29yo POD#1 s/p Diag Lap,, Right salpingectomy, evacuation of hemoperitoneum for ruptured ectopic
1. Pain seems to controlled with medication. plan to continue dilaudid, motrin and tylenol at home
2. Regular diet as tolerated
3. Patient has spontaneously voided
4. Anemia noted- s/p 2U PRBCs. expected change from the hemorrhage she had from the rupture. She is currently hemodynamically stable with a non acute abdomen so I have no concern that she is actively bleeding. will have patient continue with oral Fe
supplement
I also spent time reviewing the events of the procedure and we reviewed post-op home instructions.
Subjective Data
-
Feels okay, pain is still there but not as bad as last night. Was able to ambulate to bathroom to void. tolerating clears and soft foods. No n/v.
Objective Data
-
Laboratory Results
12/11/24 07:12
12/11/24 07:12
Vital Signs
Temp Pulse Resp BP Pulse Ox
98.5 F 97 16 120/73 97
12/11/24 07:05 12/11/24 07:05 12/11/24 07:05 12/11/24 07:05 12/11/24 09:00
Hgb11.9> 10.2> 2U PRBCs> 10.6> 8.7
Gen; lying in chair, nad
Abd: soft, nd, mild ttp.
Incision: c/d/i, ecchymosis noted along the left lateral incisions.
--- NOTE | 2024-12-11 10:47 | CM ---
Patient seen at bedside. Patient for possible discharge home. Maureenmary spent night with patient. Patient states that she lives with her parents in a 2 story home and her bedroom is on the first floor. patient has access to a hospital bed and plans to
use it at this time. Patient PCP is Dr. Vail and Jeremiah nolan. Patient uses the [facility] and plan is to return to her parents home. CM will continue to follow for discharge planning needs.
Plan; home with no needs.
--- NOTE | 2024-12-11 10:50 | CM ---
Patient is in OR from [facility]. CM will review with patient family and confirm discharge planning needs.
[2024-12-11 11:10] VITALS: BP 128/81
[2024-12-11 16:39] VITALS: BP 135/75
[2024-12-11 19:19] VITALS: BP 147/88
[2024-12-11] MEDS: FEOSOL PO (19:31)
[2024-12-11] MEDS: PEPCID PO (19:31)
[2024-12-11] MEDS: COLACE PO (19:31)
== END 2024-12-11 20:00 | disposition home or self-care (01) ==
LOC: PACU 12:06
PROVIDERS: Obstetrics & Gynecology; ATTENDING PHYSICIAN Obstetrics & Gynecology; EMERGENCY PHYSICIAN Emergency Medicine
DX: O00.101 Right tubal pregnancy without intrauterine pregnancy (principal); R10.31 Right lower quadrant pain
CPT/HCPCS: 59151; 88305; 36430; 76705; 80051; 80053; 82565; 85014; 85018; 85025; 85027; 85610; 85730; 86850; 86900; 86901; 86920; 93005; 96361; 96374; 96375; 99291; C1776; P9016

== ENCOUNTER 2024-12-18 15:10 | Emergency (ER) | payer BC, SELFPAY ==
[2024-12-18 15:12] VITALS: BP 140/55
--- NOTE | 2024-12-18 15:46 | ED.GENMED ---
History of Present Illness
General
Chief Complaint: Post Operative Problem(s)
Time Seen by Provider: 12/18/24 15:26
History of Present Illness
History of Present Illness:
Patient is a 29-year-old woman with history of recent ruptured ectopic status post laparoscopic surgery on 12/10 presenting to the emergency department with concern for skin infection. She states that she had foul-smelling drainage that occurred
today and some associated redness and warmth to the umbilical site. She called her [employer] OFFICER who advised her to come to the emergency department for further evaluation. She denies any fevers. No drainage to the other sites.
Past History
Past History
ED Past Medical History: GERD, HTN, Psychiatric and Other (Obesity)
ED Past Surgical History: Tonsilectomy
Social History
Tobacco: Non-smoker
Alcohol: None
Drug: None
Personal: Single
Living: with family
Phy Exam
Physical Exam
Physical Exam:
GENERAL: in no acute distress
HEENT: normocephalic, extraocular movements intact
NECK: normal inspection
RESPIRATORY: no respiratory distress
CARDIOVASCULAR: regular rate and rhythm
ABDOMEN/: soft, non-distended, non-tender to palpation, no rebound or guarding area of redness just below the umbilicus about 10 cm of erythema distally, no obvious fluctuance or active drainage
EXTREMITIES: non-tender, no edema/swelling
NEUROLOGIC: awake and alert, moves all extremities
SKIN: warm
Course
Orders/Labs/Results
Orders:
Orders
12/18/24 15:44
Wound Culture [Wound/Abscess/Other Culture] Urgent
SKY Source: Abdomen
Specimen Description:
Vital Signs
Initial and Last Documented VS:
Initial Vital Signs
Temp Pulse Resp BP Pulse Ox
98.4 F 77 16 140/55 98
12/18/24 15:12 12/18/24 15:12 12/18/24 15:12 12/18/24 15:12 12/18/24 15:12
Last Documented Vital Signs
Temp Pulse Resp BP Pulse Ox
98.4 F 77 16 140/55 98
12/18/24 15:12 12/18/24 15:12 12/18/24 15:12 12/18/24 15:12 12/18/24 15:12
MDM/Problems Addressed
Differential Diagnosis Includes:
Patient is a 29-year-old woman presenting to the emergency department with concern for skin infection. On arrival patient is afebrile. Exam does show area of redness/mild warmth at the umbilicus incision with no active drainage. I did attempt to
express fluid however no additional fluid came out. Likely cellulitis. No obvious abscess on exam. OB evaluated at bedside. They did clean the wound. They did send off wound cultures. Recommending outpatient antibiotics. Consider blood work
and CT scan however the skin infection does appear superficial at this time and patient is not septic so we will hold off on any additional workup. Patient advised to return precautions such as recurrent fevers, worsening redness new drainage or
any other worrisome symptoms. OB did send prescription for antibiotic.
*Critical Care Note
Total Time (30-74mins, 75-104mins- exclusive of procedures): Not Applicable
ED Attending Note
-
Portions of this chart may have been created with voice recognition software.� Occasional wrong word or��sound alike� substitutions may have occurred due to the inherent limitations of voice recognition software.
Discharge Plan
Departure
Patient Disposition: Home (Routine Discharge)
Date of Disposition: 12/18/24
Time of Disposition: 15:50
Patient with high blood pressure during this ER visit?: No
Discharge Problem:
Cellulitis of abdominal wall
Instructions: Wound Care (DC)
Prescriptions:
No Action
cetirizine [Zyrtec] 10 mg Tablet
10 mg PO DAILY
fexofenadine 180 mg Tablet
180 mg PO DAILY
lisinopril 10 mg tablet
10 mg PO DAILY
omeprazole 20 mg Tablet,Delayed Release (Dr/Ec)
20 mg PO DAILY
Probiotic 10 billion cell Capsule
10,000 mmu cells PO DAILY
bupropion HCl 150 mg tablet sustained-release 12 hr
150 mg PO DAILY
escitalopram oxalate 20 mg tablet
20 mg PO DAILY
lorazepam 1 mg Tablet
1 mg PO DAILY PRN (Reason: anxiety)
cholecalciferol (vitamin D3) [Vitamin D3] 25 mcg (1,000 unit) Capsule
25 mcg PO DAILY
acetaminophen 325 mg Tablet
650 mg PO Q4HPRN PRN (Reason: mild pain) Qty: 0 0RF
ferrous sulfate [FeroSul] 325 mg (65 mg iron) Tablet
325 mg PO DAILY Qty: 30 0RF
docusate sodium 100 mg Capsule
100 mg PO BID Qty: 0 0RF
ibuprofen 600 mg tablet
600 mg PO Q6H PRN (Reason: PAIN/CRAMPING) Qty: 45 0RF
hydromorphone [Dilaudid] 4 mg tablet
4 mg PO Q4H PRN (Reason: Pain) Qty: 15 0RF
Referrals:
Reyna Valdivia MD [Active] -
Activity Restrictions/Additional Instructions:
You were seen in the Emergency Department today for a skin infection. Your [employer] OFFICER did prescribe you antibiotics.
We would like for you to follow up with your primary care physician for further evaluation. If you experience fever, worsening of your symptoms, or develop any other new or concerning symptoms, such as fevers, redness that is spreading please return
to the Emergency Department immediately.
Please see the attached sheet for additional information.
Interventions
Interventions:
*Risk Screen - Suicide Last Done: 12/18/24 15:14
*Neglect/Abuse Screening Last Done: 12/18/24 15:14
Discharge Date and Time
Print Language: BOLIVIAN
[2024-12-18 16:08] VITALS: BP 136/72
== END 2024-12-18 16:09 | disposition home or self-care (01) ==
LOC: EMR 15:10
PROVIDERS: EMERGENCY PHYSICIAN Student in an Organized Health Care Education/Training Program; FAMILY PHYSICIAN Physician Assistant Medical
DX: L03.311 Cellulitis of abdominal wall (principal); K21.9 Gastro-esophageal reflux disease without esophagitis; I10 Essential (primary) hypertension; E66.9 Obesity, unspecified; Z79.899 Other long term (current) drug therapy; Z88.1 Allergy status to other antibiotic agents; Z88.2 Allergy status to sulfonamides; Z88.5 Allergy status to narcotic agent
CPT/HCPCS: 99283; 87070; 87071; 87077; 87147; 87205

== ENCOUNTER → 2025-01-12 12:09 | Outpatient (REF) | payer BC, SELFPAY | LOC: CLAB 12:09 | PROVIDERS: ATTENDING PHYSICIAN Physician Assistant Medical | DX: T81.49XA Infection following a procedure, other surgical site, initial encounter (principal) | CPT/HCPCS: 87070; 87205 ==

== ENCOUNTER → 2025-02-10 16:30 | Outpatient (REF) | payer BC, SELFPAY | LOC: RAD 16:30 | PROVIDERS: ATTENDING PHYSICIAN Family Medicine | DX: R05.1 Acute cough (principal) | CPT/HCPCS: 71046 ==

== ENCOUNTER → 2025-02-16 16:12 | Outpatient (REF) | payer BC, SELFPAY ==
[2025-02-16 16:35] LABS: ALT (SGPT) 33 U/L (0-35); AST (SGOT) 22 U/L (14-36); Albumin 4.5 g/dl (3.5-5.0); Alkaline Phosphatase 60 U/L (38-126); Blood Urea Nitrogen 15 mg/dl (7-17); Calcium 9.7 mg/dl (8.4-10.2); Carbon Dioxide 26 mmol/L (22-30); Chloride 107 mmol/L (98-107); Glucose 86 mg/dl (70-99); Iron 98 ug/dl (37-170); Potassium 4.6 mmol/L (3.5-5.1); Sodium 142 mmol/L (135-145); Total Bilirubin 0.4 mg/dl (0.2-1.3); Total Protein 7.3 g/dl (6.3-8.2); eGFR > 60.00
[2025-02-16 16:41] LABS: % Basophils 0.5 % (0-2); % Eosinophils 3.1 % (0-6); % Immature Granulocytes 0.3 % (0-0.5); % Lymphocytes 24.4 % (20.5-51.1); % Monocytes 6.4 % (1.7-9.3); % Neutrophils 65.3 % (42.2-75.2); Absolute Eosinophils 0.2 10^3/uL (0-0.7); Absolute Lymphocytes 1.6 10^3/uL (1.2-3.4); Absolute Monocytes 0.4 10^3/uL (0.1-0.6); Absolute Neutrophils 4.3 10^3/uL (1.4-6.5); Hematocrit 42.4 % (37.0-47.0); Hemoglobin 13.7 g/dL (12.0-16.0); Mean Corp Hgb Conc. 32.3 g/dL (33.0-37.0); Mean Corpuscular Hgb 29.3 pg (27.0-31.0); Mean Corpuscular Volume 90.8 fL (81.0-99.0); Mean Platelet Volume 10.2 fL (7.4-10.4); Nucleated Red Blood Cells % 0 %; Platelet Count 247 10^3/uL (130-400); Red Blood Cell Count 4.67 10^6/uL (4.20-5.40); Red Cell Dist. Width 13.3 % (11.5-14.5); White Blood Cell Count 6.5 10^3/uL (4.8-10.8)
[2025-02-16 16:44] LABS: Percent Saturation 27 % (20-50); Total Iron Binding Capacity 358 ug/dl (265-497)
[2025-02-16 16:52] LABS: Vitamin D, 25-OH*** 42.3 ng/mL (30-80)
[2025-02-16 17:11] LABS: Ferritin 39.5 ng/ml (6.24-137)
== END ==
LOC: CLAB 16:12
PROVIDERS: ATTENDING PHYSICIAN Physician Assistant Medical
DX: Z92.89 Personal history of other medical treatment (principal)
CPT/HCPCS: 80053; 82306; 82728; 83540; 83550; 85025

== ENCOUNTER → 2025-02-22 17:00 | Outpatient (REF) | payer BC, SELFPAY | LOC: CLAB 17:00 | PROVIDERS: ATTENDING PHYSICIAN Physician Assistant Medical | DX: R39.9 Unspecified symptoms and signs involving the genitourinary system (principal) | CPT/HCPCS: 87077; 87086 ==